=== PATIENT | female | born 1950 | race Caucasian/White ===

== ENCOUNTER 2024-11-15 11:29 | Day surgery (SDC) | payer MEDICARE, BC ==
[2024-11-15] VITALS (10 sets, daily range): BP systolic 99–120; BP diastolic 54–75; PULSE 40–60; RESP 9–19; TEMP 98.2; O2SAT 94–98
[~2024-11-15] VITALS: Ht 160 cm; Wt 87.3 kg
--- NOTE | 2024-11-15 12:21 | ELECTROCARDIOGRAPH REPORT ---
[facility] Test Date: 2024-11-15 Test Time: 12:18:03 Pat Name: BRETT HENRIQUEZ Department: [facility] Patient ID: [id number] Room: Gender: F Sewer Pipe Layer: RETA : 1950 Requested By: LYNNETTE CABRERA Order Number: [id number] Reading MD: Dr. NATHANIEL Holder Measurements Intervals [place] Rate: 46 P: 9 [place]: 235 QRS: -42 QRSD: 133 T: 27 QT: 488 QTc: 427 Interpretive Statements Sinus bradycardia Prolonged [place] interval RBBB and LAFB Electronically Signed On 11-15-2024 18:44:[address] NATHANIEL Holder Please click the below link to view image of tracing.
[2024-11-15] MEDS ORDERED: ROSU20TA98 PO (12:35)
[2024-11-15] MEDS ORDERED: LACT1CAP65 PO (12:35)
[2024-11-15] MEDS ORDERED: CLOB30CR11 TOP (12:35)
[2024-11-15] MEDS ORDERED: ASPI-1265 PO (12:35)
[2024-11-15] MEDS ORDERED: ASCO10004 PO (12:35)
[2024-11-15] MEDS ORDERED: NITR0.4T48 PO (12:35)
[2024-11-15] MEDS ORDERED: CRAN250C2 PO (12:35)
[2024-11-15] MEDS ORDERED: CHOL500049 PO (12:35)
[2024-11-15] MEDS ORDERED: ESTR42.510 (12:35)
[2024-11-15] MEDS ORDERED: MULT-1074 PO (12:35)
[2024-11-15] MEDS ORDERED: verapamil 2.5 mg/ml inj IV ONE (15:47)
[2024-11-15] MEDS ORDERED: heparin 1,000unit/ml 10ml vial 10 ML ONE (15:47)
[2024-11-15] MEDS ORDERED: LIDOcaine 1% (10mg/ml) 2ml vial ONE (15:47)
[2024-11-15] MEDS ORDERED: fentaNYL/PF 50MCG/1 ML 2ML syringe ONE (16:07)
[2024-11-15] MEDS ORDERED: midazolam 1 mg/ML 2ml injection ONE (16:07)
[2024-11-15] MEDS ORDERED: ondansetron/PF 4mg/2ml inj IV PRN (16:50)
[2024-11-15] MEDS ORDERED: HYDROcodone/acetaminophen 10/325mg tab PO PRN (16:55)
[2024-11-15] MEDS ORDERED: OXAZEpam 15mg capsule PO PRN (16:55)
[2024-11-15] MEDS ORDERED: HYDROcodone/acetaminophen 5mg/325mg tablet PO PRN (16:55)
[2024-11-15] MEDS ORDERED: ACETYLCYSTEINE 200 MG/1 ML 4 ML ORAL SOLUTION PO SCH (20:00)
--- NOTE | 2024-12-05 05:41 | CARDIOLOGY REPORT ---
DATE OF SERVICE: 11/15/2024 DICTATING PHYSICIAN: Susanne Matute MD CARDIAC CATHETERIZATION REPORT DATE OF STUDY: 11/15/2024 PROCEDURES: * Left heart catheterization. * Selective coronary angiography. * Left ventriculography. * Conscious sedation monitoring time for 15 minutes. INDICATION: Continued chest pain. PHYSICIAN: Susanne Matute MD DESCRIPTION OF PROCEDURE: After informed consent was obtained, the patient was brought to the cardiac factory laborer in a fasting state where the patient was prepped and draped in the usual sterile manner. After adequate anesthesia was obtained using 1% lidocaine to the right wrist, a 5-Syriac sheath was inserted into the right radial artery using a modified Seldinger technique. Thereafter, using a cocktail of heparin, verapamil and nitroglycerin, the cocktail was given via the sheath in the radial artery to prevent coronary vasospasm and for anticoagulation. Next, using an Ultimate-2 catheter, the catheter was advanced under fluoroscopy guidance into the ascending aorta. The catheter was then manipulated to engage the left coronary system and coronary angiography of the left system was obtained. Next, the catheter was disengaged and manipulated to engage the right coronary artery and selective coronary angiography of the right coronary artery was obtained. Thereafter, the catheter was disengaged from the right coronary artery and manipulated to advance into the left ventricle where left ventriculography in the COLLINS position was obtained. The catheter was then removed. Hemostasis was obtained using the radial band. HEMODYNAMICS: For the patient's hemodynamics, please refer to the event log. FINDINGS: The patient's left system has mild luminal irregularities with no significant coronary artery disease. The right coronary artery is noted to have mild disease. No significant stenosis. Left ventriculography revealed the presence of normal left ventricular function. Left ventricular end diastolic pressure is 9 mmHg. IMPRESSION: * Mild 20% stenosis of the right coronary artery. * Normal left ventricular function. * Left ventricular end diastolic pressure is 9 mmHg. Susanne Matute MD TID: [id number] RECEIPT: [id number] [facility]
== END 2024-11-15 18:40 | disposition home or self-care (01) ==
LOC: SSTAY O 11:29
PROVIDERS: ATTEND Student in an Organized Health Care Education/Training Program
DX: R07.9 Chest pain, unspecified (principal); I25.10 Atherosclerotic heart disease of native coronary artery without angina pectoris; R94.31 Abnormal electrocardiogram [ECG] [EKG]; I45.2 Bifascicular block; E78.00 Pure hypercholesterolemia, unspecified; I73.9 Peripheral vascular disease, unspecified; Z79.82 Long term (current) use of aspirin; Z79.899 Other long term (current) drug therapy; Z88.1 Allergy status to other antibiotic agents
CPT/HCPCS: 93005; 93458; A6258; A6402; C1894; J1644; J2003; J2250; J3010; J3490; J7030; Q0163; Q9967; Z7610; 99152; 99153